=== PATIENT | male | born 1965 | race Hispanic/Latino ===

== ENCOUNTER 2020-03-25 14:26 | Inpatient (IN) | payer BC ==
[~2020-03-25] VITALS: Ht 177.8 cm; Wt 189.1 kg
[2020-03-25 15:10] LABS: BASOPHILS % 0.2 % (0.0-1.0); HEMATOCRIT 51.3 % (38.2-49.6); HEMOGLOBIN 16.5 g/dL (14.0-18.0); LYMPHOCYTES # (AUTO) 0.7 (1.0-3.2); LYMPHOCYTES % 12.9 % (18.0-39.1); MEAN CORPUSCULAR HGB CONC 32.2 g/dL (31-35); MEAN CORPUSCULAR VOLUME 90.2 fL (81-99); MONOCYTES # (AUTO) 0.4 (0.2-0.8); NEUTROPHILS # (AUTO) 4.2 (2.1-6.9); NEUTROPHILS % 78.7 % (38.7-80.0); PLATELET COUNT 156 x10e3/uL (140-360); RED BLOOD COUNT 5.69 x10e6/uL (4.3-5.7); RED CELL DISTRIBUTION WIDTH 13.6 % (11.7-14.4)
[2020-03-25] MEDS ORDERED: DEXAMETHASONE SOD PHOS 10 MG/1 ML VIAL IV ONE (15:15)
[2020-03-25 15:27] LABS: ALANINE AMINOTRANSFERASE 46 IU/L (0-55); ALBUMIN 3.6 g/dL (3.5-5.0); ALBUMIN/GLOBULIN RATIO 0.9 (0.8-2.0); ALKALINE PHOSPHATASE 73 IU/L (40-150); ANION GAP 14.3 mmol/L (8-16); BLOOD UREA NITROGEN 9 mg/dL (7-26); BUN/CREATININE RATIO 9 (6-25); CALCIUM 8.2 mg/dL (8.4-10.2); CARBON DIOXIDE 29 mmol/L (22-29); CHLORIDE 96 mmol/L (98-107); CREATININE, SERUM 0.99 mg/dL (0.72-1.25); EST GLOMERULAR FILTRATION RATE > 60 ML/MIN (60-); GLUCOSE 109 mg/dL (74-118); POTASSIUM 4.3 mmol/L (3.5-5.1); SODIUM 135 mmol/L (136-145)
[2020-03-25] MEDS ORDERED: CEFTRIAXONE SOD 1 GM/NS 50 ML 50 ML IV SCH (15:45)
[2020-03-25] MEDS: AZITHROMYCIN 500MG/NS 250 ML 250 ML IV SCH (16:15)
[2020-03-25] MEDS: ENOXAPARIN SOD INJ 40 MG/0.4 ML SYR SC SCH (16:19)
[2020-03-25] MEDS: ASCORBIC ACID 500 MG TAB PO SCH (16:21)
[2020-03-25] MEDS ORDERED: ENOXAPARIN INJ 80 MG/0.8 ML SYR SC SCH ×2 (17:00)
[2020-03-25] MEDS ORDERED: ASCORBIC ACID 500 MG TAB PO SCH (17:00)
[2020-03-25 17:46] VITALS: BP 146/86
[2020-03-25 17:50] VITALS: BP 146/86
[2020-03-25] MEDS ORDERED: REMDESIVIR 200MG/NS 100ML 200 MG IV ONE (18:00)
[2020-03-25] MEDS: CEFTRIAXONE SOD 2 GM/NS 100 ML 100 ML IV SCH (18:15)
[2020-03-25] MEDS ORDERED: SODIUM CHLORIDE 0.9% 50ML 50 ML ONE (18:27)
[2020-03-25] MEDS ORDERED: AZOR 10-40 MG1 EACH PO (18:41)
[2020-03-25 20:56] VITALS: BP 133/66
[2020-03-25 21:04] VITALS: BP 133/66
[2020-03-25] MEDS: ACETAMINOPHEN 325 MG TAB PO PRN (21:24)
[2020-03-25 23:54] VITALS: BP 119/65
[2020-03-26] VITALS (7 sets, daily range): BP systolic 125–146; BP diastolic 78–94
[2020-03-26] MEDS: ACETAMINOPHEN 325 MG TAB PO PRN (04:18)
[2020-03-26] MEDS: ONDANSETRON HCL INJ 2MG/ML 2ML 2 MG/ML VIAL IV PRN ×2 (05:20→09:18)
[2020-03-26] MEDS: MORPHINE SULFATE INJ 2 MG/ML SYR IV PRN ×2 (05:20→09:18)
[2020-03-26] MEDS ORDERED: AZITHROMYCIN 500MG/NS 250 ML 250 ML IV SCH ×2 (06:00→09:00)
[2020-03-26 06:57] LABS: HEMATOCRIT 49.8 % (38.2-49.6); LYMPHOCYTES # (AUTO) 0.5 (1.0-3.2); LYMPHOCYTES % 12.4 % (18.0-39.1); MEAN CORPUSCULAR HEMOGLOBIN 28.9 pg (28-32); MEAN CORPUSCULAR HGB CONC 32.1 g/dL (31-35); MEAN CORPUSCULAR VOLUME 89.9 fL (81-99); MONOCYTES # (AUTO) 0.4 (0.2-0.8); MONOCYTES % 8.5 % (4.4-11.3); NEUTROPHILS # (AUTO) 3.4 (2.1-6.9); NEUTROPHILS % 78.9 % (38.7-80.0); PLATELET COUNT 157 x10e3/uL (140-360); RED BLOOD COUNT 5.54 x10e6/uL (4.3-5.7); RED CELL DISTRIBUTION WIDTH 13.5 % (11.7-14.4)
[2020-03-26 07:17] LABS: ALANINE AMINOTRANSFERASE 44 IU/L (0-55); ALBUMIN 3.4 g/dL (3.5-5.0); ALBUMIN/GLOBULIN RATIO 0.9 (0.8-2.0); ALKALINE PHOSPHATASE 66 IU/L (40-150); ANION GAP 13.2 mmol/L (8-16); BLOOD UREA NITROGEN 12 mg/dL (7-26); BUN/CREATININE RATIO 15 (6-25); CARBON DIOXIDE 25 mmol/L (22-29); CHLORIDE 100 mmol/L (98-107); CREATININE, SERUM 0.79 mg/dL (0.72-1.25); EST GLOMERULAR FILTRATION RATE > 60 ML/MIN (60-); GLUCOSE 115 mg/dL (74-118); POTASSIUM 4.2 mmol/L (3.5-5.1); SODIUM 134 mmol/L (136-145)
[2020-03-26] MEDS: ASCORBIC ACID 500 MG TAB PO SCH ×2 (08:14→16:09)
[2020-03-26] MEDS ORDERED: SODIUM CHLORIDE 0.9% 250ML 250 ML ONE (08:15)
[2020-03-26] MEDS: LOSARTAN POTASSIUM 25 MG TAB PO SCH (08:16)
[2020-03-26] MEDS: DEXAMETHASONE SOD PHOS 10 MG/1 ML VIAL IV SCH (08:17)
[2020-03-26] MEDS: ENOXAPARIN SOD INJ 40 MG/0.4 ML SYR SC SCH ×2 (08:17→16:09)
[2020-03-26] MEDS ORDERED: CEFTRIAXONE SOD 2 GM/NS 100 ML 100 ML IV SCH (09:00)
[2020-03-26] MEDS ORDERED: ZINC SULFATE 220 MG CAP PO SCH ×2 (09:00)
[2020-03-26] MEDS: ZINC SULFATE 50 MG CAP PO SCH (10:06)
[2020-03-26] MEDS: REMDESIVIR 100MG/NS 100ML 100 MG IV SCH (13:35)
[2020-03-26] MEDS: AZITHROMYCIN 500MG/NS 250 ML 250 ML IV SCH (16:10)
[2020-03-26] MEDS: DOCUSATE SODIUM 100 MG CAP PO SCH ×2 (17:00→17:56)
[2020-03-26] MEDS: ALBUTEROL SULFATE HFA 8GM INHALATION AEROSOL INH PRN (17:20)
[2020-03-26] MEDS: CEFTRIAXONE SOD 2 GM/NS 100 ML 100 ML IV SCH (17:50)
[2020-03-27] VITALS (8 sets, daily range): BP systolic 114–142; BP diastolic 62–95
[2020-03-27 06:59] LABS: AMYLASE 40 U/L (25-125); LIPASE 21 U/L (8-78)
[2020-03-27] MEDS: DOCUSATE SODIUM 100 MG CAP PO SCH ×2 (09:42→18:17)
[2020-03-27] MEDS: ENOXAPARIN SOD INJ 40 MG/0.4 ML SYR SC SCH ×2 (09:42→18:17)
[2020-03-27] MEDS: ASCORBIC ACID 500 MG TAB PO SCH ×2 (09:42→18:17)
[2020-03-27] MEDS: DEXAMETHASONE SOD PHOS 10 MG/1 ML VIAL IV SCH (09:42)
[2020-03-27] MEDS: ZINC SULFATE 50 MG CAP PO SCH (09:42)
[2020-03-27] MEDS: LOSARTAN POTASSIUM 25 MG TAB PO SCH (09:42)
[2020-03-27 10:37] LABS: BASOPHILS % 0.2 % (0.0-1.0); HEMATOCRIT 49.9 % (38.2-49.6); HEMOGLOBIN 16.1 g/dL (14.0-18.0); LYMPHOCYTES # (AUTO) 0.9 (1.0-3.2); LYMPHOCYTES % 13.6 % (18.0-39.1); MEAN CORPUSCULAR HGB CONC 32.3 g/dL (31-35); MEAN CORPUSCULAR VOLUME 89.9 fL (81-99); MONOCYTES # (AUTO) 0.6 (0.2-0.8); NEUTROPHILS # (AUTO) 4.9 (2.1-6.9); PLATELET COUNT 182 x10e3/uL (140-360); RED BLOOD COUNT 5.55 x10e6/uL (4.3-5.7); RED CELL DISTRIBUTION WIDTH 13.9 % (11.7-14.4)
[2020-03-27 10:56] LABS: ALANINE AMINOTRANSFERASE 45 IU/L (0-55); ALBUMIN 3.4 g/dL (3.5-5.0); ALBUMIN/GLOBULIN RATIO 0.9 (0.8-2.0); ALKALINE PHOSPHATASE 61 IU/L (40-150); ANION GAP 15.2 mmol/L (8-16); BLOOD UREA NITROGEN 15 mg/dL (7-26); BUN/CREATININE RATIO 17 (6-25); CARBON DIOXIDE 23 mmol/L (22-29); CHLORIDE 99 mmol/L (98-107); CREATININE, SERUM 0.88 mg/dL (0.72-1.25); EST GLOMERULAR FILTRATION RATE > 60 ML/MIN (60-); GLUCOSE 102 mg/dL (74-118); POTASSIUM 4.2 mmol/L (3.5-5.1); SODIUM 133 mmol/L (136-145)
[2020-03-27] MEDS: REMDESIVIR 100MG/NS 100ML 100 MG IV SCH (13:22)
[2020-03-27] MEDS: AZITHROMYCIN 500MG/NS 250 ML 250 ML IV SCH (15:53)
[2020-03-27] MEDS: CEFTRIAXONE SOD 2 GM/NS 100 ML 100 ML IV SCH (19:30)
[2020-03-27] MEDS: ACETAMINOPHEN 325 MG TAB PO PRN (19:45)
[2020-03-28] VITALS (8 sets, daily range): BP systolic 115–159; BP diastolic 66–81
[2020-03-28] MEDS: ACETAMINOPHEN 325 MG TAB PO PRN (03:38)
[2020-03-28 06:12] LABS: BASOPHILS % 0.2 % (0.0-1.0); HEMATOCRIT 48.7 % (38.2-49.6); HEMOGLOBIN 15.5 g/dL (14.0-18.0); LYMPHOCYTES # (AUTO) 0.8 (1.0-3.2); LYMPHOCYTES % 12.8 % (18.0-39.1); MEAN CORPUSCULAR HEMOGLOBIN 28.4 pg (28-32); MEAN CORPUSCULAR HGB CONC 31.8 g/dL (31-35); MEAN CORPUSCULAR VOLUME 89.4 fL (81-99); MONOCYTES # (AUTO) 0.6 (0.2-0.8); MONOCYTES % 8.8 % (4.4-11.3); NEUTROPHILS # (AUTO) 5.1 (2.1-6.9); PLATELET COUNT 186 x10e3/uL (140-360); RED BLOOD COUNT 5.45 x10e6/uL (4.3-5.7); RED CELL DISTRIBUTION WIDTH 13.9 % (11.7-14.4)
[2020-03-28 06:44] LABS: ALANINE AMINOTRANSFERASE 51 IU/L (0-55); ALBUMIN 3.3 g/dL (3.5-5.0); ALBUMIN/GLOBULIN RATIO 0.9 (0.8-2.0); ALKALINE PHOSPHATASE 104 IU/L (40-150); ANION GAP 12.9 mmol/L (8-16); BLOOD UREA NITROGEN 14 mg/dL (7-26); BUN/CREATININE RATIO 19 (6-25); CALCIUM 8.2 mg/dL (8.4-10.2); CARBON DIOXIDE 28 mmol/L (22-29); CHLORIDE 97 mmol/L (98-107); CREATININE, SERUM 0.74 mg/dL (0.72-1.25); EST GLOMERULAR FILTRATION RATE > 60 ML/MIN (60-); GLUCOSE 110 mg/dL (74-118); POTASSIUM 3.9 mmol/L (3.5-5.1); SODIUM 134 mmol/L (136-145)
[2020-03-28] MEDS: DEXAMETHASONE SOD PHOS 10 MG/1 ML VIAL IV SCH (08:56)
[2020-03-28] MEDS: ASCORBIC ACID 500 MG TAB PO SCH ×2 (08:57→16:05)
[2020-03-28] MEDS: LOSARTAN POTASSIUM 25 MG TAB PO SCH (08:57)
[2020-03-28] MEDS: ENOXAPARIN SOD INJ 40 MG/0.4 ML SYR SC SCH ×2 (08:57→17:53)
[2020-03-28] MEDS: ZINC SULFATE 50 MG CAP PO SCH (08:57)
[2020-03-28] MEDS: DOCUSATE SODIUM 100 MG CAP PO SCH ×2 (09:00→16:05)
[2020-03-28] MEDS: ONDANSETRON HCL INJ 2MG/ML 2ML 2 MG/ML VIAL IV PRN (11:06)
[2020-03-28] MEDS: REMDESIVIR 100MG/NS 100ML 100 MG IV SCH (13:30)
[2020-03-28] MEDS: AZITHROMYCIN 500MG/NS 250 ML 250 ML IV SCH (15:24)
[2020-03-28] MEDS: ALBUTEROL SULFATE HFA 8GM INHALATION AEROSOL INH PRN (15:41)
[2020-03-28] MEDS: CEFTRIAXONE SOD 2 GM/NS 100 ML 100 ML IV SCH (16:05)
[2020-03-28] MEDS: MORPHINE SULFATE INJ 2 MG/ML SYR IV PRN (23:30)
[2020-03-29] VITALS (8 sets, daily range): BP systolic 109–146; BP diastolic 65–87
[2020-03-29 06:17] LABS: HEMATOCRIT 49.2 % (38.2-49.6); HEMOGLOBIN 15.4 g/dL (14.0-18.0); LYMPHOCYTES # (AUTO) 0.8 (1.0-3.2); LYMPHOCYTES % 9.6 % (18.0-39.1); MEAN CORPUSCULAR HEMOGLOBIN 28.5 pg (28-32); MEAN CORPUSCULAR HGB CONC 31.3 g/dL (31-35); MEAN CORPUSCULAR VOLUME 90.9 fL (81-99); MONOCYTES # (AUTO) 0.7 (0.2-0.8); MONOCYTES % 8.8 % (4.4-11.3); NEUTROPHILS # (AUTO) 6.5 (2.1-6.9); PLATELET COUNT 226 x10e3/uL (140-360); RED BLOOD COUNT 5.41 x10e6/uL (4.3-5.7); RED CELL DISTRIBUTION WIDTH 13.5 % (11.7-14.4)
[2020-03-29 07:08] LABS: ALANINE AMINOTRANSFERASE 52 IU/L (0-55); ALBUMIN 3.1 g/dL (3.5-5.0); ALBUMIN/GLOBULIN RATIO 0.8 (0.8-2.0); ALKALINE PHOSPHATASE 57 IU/L (40-150); ANION GAP 13.2 mmol/L (8-16); BLOOD UREA NITROGEN 13 mg/dL (7-26); BUN/CREATININE RATIO 18 (6-25); CALCIUM 8.1 mg/dL (8.4-10.2); CARBON DIOXIDE 29 mmol/L (22-29); CHLORIDE 97 mmol/L (98-107); CREATININE, SERUM 0.74 mg/dL (0.72-1.25); EST GLOMERULAR FILTRATION RATE > 60 ML/MIN (60-); GLUCOSE 124 mg/dL (74-118); POTASSIUM 4.2 mmol/L (3.5-5.1); SODIUM 135 mmol/L (136-145)
[2020-03-29] MEDS: LOSARTAN POTASSIUM 25 MG TAB PO SCH (08:48)
[2020-03-29] MEDS: ASCORBIC ACID 500 MG TAB PO SCH ×2 (08:49→19:29)
[2020-03-29] MEDS: ZINC SULFATE 50 MG CAP PO SCH (08:49)
[2020-03-29] MEDS: DOCUSATE SODIUM 100 MG CAP PO SCH ×2 (08:49→17:00)
[2020-03-29] MEDS: ENOXAPARIN SOD INJ 40 MG/0.4 ML SYR SC SCH ×2 (08:49→19:29)
[2020-03-29] MEDS: DEXAMETHASONE SOD PHOS 10 MG/1 ML VIAL IV SCH (08:50)
[2020-03-29] MEDS: MORPHINE SULFATE INJ 2 MG/ML SYR IV PRN (12:00)
[2020-03-29] MEDS: REMDESIVIR 100MG/NS 100ML 100 MG IV SCH (14:52)
[2020-03-29] MEDS: AZITHROMYCIN 500MG/NS 250 ML 250 ML IV SCH (19:18)
[2020-03-29] MEDS: CEFTRIAXONE SOD 2 GM/NS 100 ML 100 ML IV SCH (19:29)
[2020-03-30] VITALS (7 sets, daily range): BP systolic 114–142; BP diastolic 70–86
[2020-03-30] MEDS: DEXAMETHASONE SOD PHOS 10 MG/1 ML VIAL IV SCH (08:29)
[2020-03-30] MEDS: LOSARTAN POTASSIUM 25 MG TAB PO SCH (08:43)
[2020-03-30] MEDS: ASCORBIC ACID 500 MG TAB PO SCH ×2 (08:43→17:23)
[2020-03-30] MEDS: DOCUSATE SODIUM 100 MG CAP PO SCH ×2 (08:43→17:23)
[2020-03-30] MEDS: ENOXAPARIN SOD INJ 40 MG/0.4 ML SYR SC SCH ×2 (08:43→17:23)
[2020-03-30] MEDS: ZINC SULFATE 50 MG CAP PO SCH (08:43)
[2020-03-30 09:45] LABS: BASOPHILS % 0.2 % (0.0-1.0); HEMATOCRIT 47.6 % (38.2-49.6); HEMOGLOBIN 15.2 g/dL (14.0-18.0); LYMPHOCYTES # (AUTO) 0.9 (1.0-3.2); LYMPHOCYTES % 9.7 % (18.0-39.1); MEAN CORPUSCULAR HGB CONC 31.9 g/dL (31-35); MEAN CORPUSCULAR VOLUME 90.8 fL (81-99); MONOCYTES # (AUTO) 0.8 (0.2-0.8); MONOCYTES % 8.5 % (4.4-11.3); NEUTROPHILS # (AUTO) 7.3 (2.1-6.9); NEUTROPHILS % 81.2 % (38.7-80.0); PLATELET COUNT 256 x10e3/uL (140-360); RED BLOOD COUNT 5.24 x10e6/uL (4.3-5.7); RED CELL DISTRIBUTION WIDTH 13.5 % (11.7-14.4)
[2020-03-30 10:48] LABS: ALANINE AMINOTRANSFERASE 61 IU/L (0-55); ALBUMIN 3.1 g/dL (3.5-5.0); ALBUMIN/GLOBULIN RATIO 0.8 (0.8-2.0); ALKALINE PHOSPHATASE 58 IU/L (40-150); ANION GAP 12.4 mmol/L (8-16); BLOOD UREA NITROGEN 14 mg/dL (7-26); BUN/CREATININE RATIO 19 (6-25); CALCIUM 8.3 mg/dL (8.4-10.2); CARBON DIOXIDE 30 mmol/L (22-29); CHLORIDE 99 mmol/L (98-107); CREATININE, SERUM 0.74 mg/dL (0.72-1.25); EST GLOMERULAR FILTRATION RATE > 60 ML/MIN (60-); GLUCOSE 140 mg/dL (74-118); POTASSIUM 4.4 mmol/L (3.5-5.1); SODIUM 137 mmol/L (136-145)
[2020-03-30] MEDS: CEFTRIAXONE SOD 2 GM/NS 100 ML 100 ML IV SCH (17:23)
[2020-03-30] MEDS: AZITHROMYCIN 500MG/NS 250 ML 250 ML IV SCH (17:23)
[2020-03-30] MEDS: ALPRAZOLAM 0.25 MG TAB PO PRN (17:27)
[2020-03-30] MEDS: ALBUTEROL SULFATE HFA 8GM INHALATION AEROSOL INH PRN (21:37)
[2020-03-31] VITALS (8 sets, daily range): BP systolic 129–137; BP diastolic 59–80
[2020-03-31] MEDS: DOCUSATE SODIUM 100 MG CAP PO SCH ×2 (08:34→16:02)
[2020-03-31] MEDS: DEXAMETHASONE SOD PHOS 10 MG/1 ML VIAL IV SCH (08:34)
[2020-03-31] MEDS: ASCORBIC ACID 500 MG TAB PO SCH ×2 (08:35→16:02)
[2020-03-31] MEDS: ENOXAPARIN SOD INJ 40 MG/0.4 ML SYR SC SCH ×2 (08:35→16:02)
[2020-03-31] MEDS: LOSARTAN POTASSIUM 25 MG TAB PO SCH (08:35)
[2020-03-31] MEDS: ZINC SULFATE 50 MG CAP PO SCH (08:35)
[2020-03-31 09:17] LABS: BASOPHILS % 0.1 % (0.0-1.0); EOSINOPHILS % 0.1 % (0.0-6.0); HEMATOCRIT 49.5 % (38.2-49.6); HEMOGLOBIN 15.5 g/dL (14.0-18.0); LYMPHOCYTES % 14.9 % (18.0-39.1); MEAN CORPUSCULAR HEMOGLOBIN 28.8 pg (28-32); MEAN CORPUSCULAR HGB CONC 31.3 g/dL (31-35); MONOCYTES # (AUTO) 0.5 (0.2-0.8); MONOCYTES % 7.9 % (4.4-11.3); NEUTROPHILS # (AUTO) 5.2 (2.1-6.9); PLATELET COUNT 276 x10e3/uL (140-360); RED BLOOD COUNT 5.38 x10e6/uL (4.3-5.7); RED CELL DISTRIBUTION WIDTH 13.5 % (11.7-14.4)
[2020-03-31 09:42] LABS: ALANINE AMINOTRANSFERASE 76 IU/L (0-55); ALBUMIN 3.2 g/dL (3.5-5.0); ALBUMIN/GLOBULIN RATIO 0.9 (0.8-2.0); ALKALINE PHOSPHATASE 64 IU/L (40-150); ANION GAP 13.3 mmol/L (8-16); BLOOD UREA NITROGEN 16 mg/dL (7-26); BUN/CREATININE RATIO 20 (6-25); CALCIUM 8.6 mg/dL (8.4-10.2); CARBON DIOXIDE 31 mmol/L (22-29); CHLORIDE 98 mmol/L (98-107); EST GLOMERULAR FILTRATION RATE > 60 ML/MIN (60-); GLUCOSE 142 mg/dL (74-118); POTASSIUM 4.3 mmol/L (3.5-5.1); SODIUM 138 mmol/L (136-145)
[2020-03-31] MEDS: AZITHROMYCIN 500MG/NS 250 ML 250 ML IV SCH (16:00)
[2020-03-31] MEDS: CEFTRIAXONE SOD 2 GM/NS 100 ML 100 ML IV SCH (17:11)
[2020-03-31] MEDS: ALPRAZOLAM 0.25 MG TAB PO PRN (23:14)
[2020-04-01] VITALS (8 sets, daily range): BP systolic 114–140; BP diastolic 43–91
[2020-04-01 06:00] LABS: BASOPHILS % 0.1 % (0.0-1.0); EOSINOPHILS % 0.1 % (0.0-6.0); HEMATOCRIT 50.9 % (38.2-49.6); HEMOGLOBIN 16.2 g/dL (14.0-18.0); LYMPHOCYTES # (AUTO) 1.2 (1.0-3.2); LYMPHOCYTES % 15.2 % (18.0-39.1); MEAN CORPUSCULAR HEMOGLOBIN 28.9 pg (28-32); MEAN CORPUSCULAR HGB CONC 31.8 g/dL (31-35); MEAN CORPUSCULAR VOLUME 90.7 fL (81-99); MONOCYTES # (AUTO) 0.7 (0.2-0.8); MONOCYTES % 9.2 % (4.4-11.3); NEUTROPHILS # (AUTO) 5.8 (2.1-6.9); NEUTROPHILS % 74.5 % (38.7-80.0); PLATELET COUNT 320 x10e3/uL (140-360); RED BLOOD COUNT 5.61 x10e6/uL (4.3-5.7); RED CELL DISTRIBUTION WIDTH 13.5 % (11.7-14.4)
[2020-04-01 06:38] LABS: ALANINE AMINOTRANSFERASE 80 IU/L (0-55); ALBUMIN 3.2 g/dL (3.5-5.0); ALKALINE PHOSPHATASE 65 IU/L (40-150); ANION GAP 12.4 mmol/L (8-16); BLOOD UREA NITROGEN 14 mg/dL (7-26); BUN/CREATININE RATIO 19 (6-25); CALCIUM 8.4 mg/dL (8.4-10.2); CARBON DIOXIDE 31 mmol/L (22-29); CHLORIDE 99 mmol/L (98-107); CREATININE, SERUM 0.75 mg/dL (0.72-1.25); EST GLOMERULAR FILTRATION RATE > 60 ML/MIN (60-); GLUCOSE 105 mg/dL (74-118); POTASSIUM 4.4 mmol/L (3.5-5.1); SODIUM 138 mmol/L (136-145)
[2020-04-01] MEDS: ZINC SULFATE 50 MG CAP PO SCH (08:23)
[2020-04-01] MEDS: ENOXAPARIN SOD INJ 40 MG/0.4 ML SYR SC SCH (08:23)
[2020-04-01] MEDS: LOSARTAN POTASSIUM 25 MG TAB PO SCH (08:23)
[2020-04-01] MEDS: DOCUSATE SODIUM 100 MG CAP PO SCH ×3 (08:23→16:01)
[2020-04-01] MEDS: DEXAMETHASONE SOD PHOS 10 MG/1 ML VIAL IV SCH (08:23)
[2020-04-01] MEDS: ASCORBIC ACID 500 MG TAB PO SCH ×2 (08:23→16:01)
[2020-04-01] MEDS: CEFTRIAXONE SOD 2 GM/NS 100 ML 100 ML IV SCH (16:01)
[2020-04-01] MEDS: AZITHROMYCIN 500MG/NS 250 ML 250 ML IV SCH (17:05)
[2020-04-01] MEDS: RIVAROXABAN 20 MG TABLET PO SCH (18:13)
[2020-04-01] MEDS: METOPROLOL TARTRATE 50 MG TAB PO SCH (18:13)
[2020-04-02] VITALS (9 sets, daily range): BP systolic 85–154; BP diastolic 45–132
[2020-04-02] MEDS: DOCUSATE SODIUM 100 MG CAP PO SCH ×2 (09:00→16:36)
[2020-04-02] MEDS: METOPROLOL TARTRATE 50 MG TAB PO SCH ×2 (10:14→16:56)
[2020-04-02] MEDS: LOSARTAN POTASSIUM 25 MG TAB PO SCH (10:14)
[2020-04-02] MEDS: ASCORBIC ACID 500 MG TAB PO SCH ×2 (10:14→16:56)
[2020-04-02] MEDS: ZINC SULFATE 50 MG CAP PO SCH (10:15)
[2020-04-02] MEDS: AZITHROMYCIN 500MG/NS 250 ML 250 ML IV SCH (16:53)
[2020-04-02] MEDS: RIVAROXABAN 20 MG TABLET PO SCH (16:56)
[2020-04-02] MEDS: CEFTRIAXONE SOD 2 GM/NS 100 ML 100 ML IV SCH (18:14)
[2020-04-02] MEDS: ALPRAZOLAM 0.25 MG TAB PO PRN (20:39)
[2020-04-02] MEDS: ZOLPIDEM TARTRATE 5 MG TAB PO PRN (20:39)
[2020-04-03] VITALS (8 sets, daily range): BP systolic 96–113; BP diastolic 62–81
[2020-04-03] MEDS: DOCUSATE SODIUM 100 MG CAP PO SCH ×2 (08:25→16:29)
[2020-04-03] MEDS: METOPROLOL TARTRATE 50 MG TAB PO SCH ×2 (09:00→16:29)
[2020-04-03] MEDS: ZINC SULFATE 50 MG CAP PO SCH (09:00)
[2020-04-03] MEDS: ASCORBIC ACID 500 MG TAB PO SCH ×2 (09:00→16:29)
[2020-04-03] MEDS: LOSARTAN POTASSIUM 25 MG TAB PO SCH ×2 (09:00→16:30)
[2020-04-03] MEDS: AZITHROMYCIN 500MG/NS 250 ML 250 ML IV SCH (16:11)
[2020-04-03] MEDS: RIVAROXABAN 20 MG TABLET PO SCH (16:29)
[2020-04-03] MEDS: ACETAMINOPHEN 325 MG TAB PO PRN (16:29)
[2020-04-03] MEDS: CEFTRIAXONE SOD 2 GM/NS 100 ML 100 ML IV SCH (18:15)
[2020-04-03] MEDS: ZOLPIDEM TARTRATE 5 MG TAB PO PRN (20:23)
[2020-04-03] MEDS: ALPRAZOLAM 0.25 MG TAB PO PRN (20:24)
[2020-04-04] VITALS (8 sets, daily range): BP systolic 99–134; BP diastolic 61–99
[2020-04-04 06:13] LABS: BASOPHILS % 0.1 % (0.0-1.0); EOSINOPHILS # (AUTO) 0.1 (0.0-0.4); EOSINOPHILS % 1.4 % (0.0-6.0); HEMATOCRIT 51.3 % (38.2-49.6); HEMOGLOBIN 16.4 g/dL (14.0-18.0); LYMPHOCYTES # (AUTO) 1.1 (1.0-3.2); LYMPHOCYTES % 13.6 % (18.0-39.1); MEAN CORPUSCULAR HEMOGLOBIN 28.7 pg (28-32); MEAN CORPUSCULAR VOLUME 89.8 fL (81-99); MONOCYTES # (AUTO) 0.9 (0.2-0.8); MONOCYTES % 10.9 % (4.4-11.3); NEUTROPHILS # (AUTO) 5.8 (2.1-6.9); NEUTROPHILS % 73.2 % (38.7-80.0); PLATELET COUNT 303 x10e3/uL (140-360); RED BLOOD COUNT 5.71 x10e6/uL (4.3-5.7); RED CELL DISTRIBUTION WIDTH 13.8 % (11.7-14.4)
[2020-04-04 06:46] LABS: ALANINE AMINOTRANSFERASE 81 IU/L (0-55); ALBUMIN 2.9 g/dL (3.5-5.0); ALBUMIN/GLOBULIN RATIO 0.9 (0.8-2.0); ALKALINE PHOSPHATASE 58 IU/L (40-150); ANION GAP 12.6 mmol/L (8-16); BLOOD UREA NITROGEN 16 mg/dL (7-26); BUN/CREATININE RATIO 21 (6-25); CALCIUM 7.9 mg/dL (8.4-10.2); CARBON DIOXIDE 26 mmol/L (22-29); CHLORIDE 104 mmol/L (98-107); CREATININE, SERUM 0.78 mg/dL (0.72-1.25); EST GLOMERULAR FILTRATION RATE > 60 ML/MIN (60-); GLUCOSE 114 mg/dL (74-118); MAGNESIUM 2.3 MG/DL (1.3-2.1); POTASSIUM 4.6 mmol/L (3.5-5.1); SODIUM 138 mmol/L (136-145)
[2020-04-04] MEDS: ZINC SULFATE 50 MG CAP PO SCH (09:13)
[2020-04-04] MEDS: ASCORBIC ACID 500 MG TAB PO SCH ×2 (09:13→17:59)
[2020-04-04] MEDS: LOSARTAN POTASSIUM 25 MG TAB PO SCH (09:13)
[2020-04-04] MEDS: DOCUSATE SODIUM 100 MG CAP PO SCH ×2 (09:13→17:59)
[2020-04-04] MEDS: METOPROLOL TARTRATE 50 MG TAB PO SCH ×2 (09:13→17:59)
[2020-04-04] MEDS: RIVAROXABAN 20 MG TABLET PO SCH (17:59)
[2020-04-05] VITALS (10 sets, daily range): BP systolic 91–152; BP diastolic 53–83
[2020-04-05] MEDS: ACETAMINOPHEN 325 MG TAB PO PRN (02:48)
[2020-04-05] MEDS: DOCUSATE SODIUM 100 MG CAP PO SCH ×2 (08:24→16:42)
[2020-04-05] MEDS: ZINC SULFATE 50 MG CAP PO SCH (08:25)
[2020-04-05] MEDS: METOPROLOL TARTRATE 50 MG TAB PO SCH ×2 (08:25→16:44)
[2020-04-05] MEDS: LOSARTAN POTASSIUM 25 MG TAB PO SCH (08:25)
[2020-04-05] MEDS: ASCORBIC ACID 500 MG TAB PO SCH ×2 (08:25→16:42)
[2020-04-05] MEDS: RIVAROXABAN 20 MG TABLET PO SCH (16:42)
[2020-04-05] MEDS: ZOLPIDEM TARTRATE 5 MG TAB PO PRN (21:30)
[2020-04-06] VITALS (7 sets, daily range): BP systolic 105–121; BP diastolic 55–96
[2020-04-06] MEDS: ASCORBIC ACID 500 MG TAB PO SCH ×2 (07:53→16:43)
[2020-04-06] MEDS: DOCUSATE SODIUM 100 MG CAP PO SCH ×2 (07:53→16:42)
[2020-04-06] MEDS: ZINC SULFATE 50 MG CAP PO SCH (07:54)
[2020-04-06] MEDS: LOSARTAN POTASSIUM 25 MG TAB PO SCH (09:23)
[2020-04-06] MEDS: METOPROLOL TARTRATE 50 MG TAB PO SCH ×2 (09:23→16:43)
[2020-04-06] MEDS: RIVAROXABAN 20 MG TABLET PO SCH (16:43)
[2020-04-06] MEDS ORDERED: ZOLPIDEM TARTRATE 5 MG TAB PO PRN (22:45)
[2020-04-07] VITALS (7 sets, daily range): BP systolic 99–121; BP diastolic 54–92
[2020-04-07] MEDS: ZINC SULFATE 50 MG CAP PO SCH (08:36)
[2020-04-07] MEDS: METOPROLOL TARTRATE 50 MG TAB PO SCH ×2 (08:36→16:57)
[2020-04-07] MEDS: LOSARTAN POTASSIUM 25 MG TAB PO SCH (08:36)
[2020-04-07] MEDS: ASCORBIC ACID 500 MG TAB PO SCH ×2 (08:36→16:58)
[2020-04-07] MEDS: DOCUSATE SODIUM 100 MG CAP PO SCH ×2 (08:36→16:57)
[2020-04-07] MEDS: RIVAROXABAN 20 MG TABLET PO SCH (16:58)
[2020-04-08] VITALS (8 sets, daily range): BP systolic 87–112; BP diastolic 54–75
[2020-04-08 05:34] LABS: BASOPHILS % 0.3 % (0.0-1.0); EOSINOPHILS % 0.6 % (0.0-6.0); HEMATOCRIT 49.7 % (38.2-49.6); HEMOGLOBIN 16.2 g/dL (14.0-18.0); LYMPHOCYTES # (AUTO) 1.4 (1.0-3.2); LYMPHOCYTES % 22.6 % (18.0-39.1); MEAN CORPUSCULAR HEMOGLOBIN 29.7 pg (28-32); MEAN CORPUSCULAR HGB CONC 32.6 g/dL (31-35); MEAN CORPUSCULAR VOLUME 91.2 fL (81-99); MONOCYTES # (AUTO) 0.7 (0.2-0.8); MONOCYTES % 11.4 % (4.4-11.3); NEUTROPHILS # (AUTO) 4.1 (2.1-6.9); NEUTROPHILS % 64.6 % (38.7-80.0); PLATELET COUNT 250 x10e3/uL (140-360); RED BLOOD COUNT 5.45 x10e6/uL (4.3-5.7); RED CELL DISTRIBUTION WIDTH 13.8 % (11.7-14.4)
[2020-04-08 05:46] LABS: ALANINE AMINOTRANSFERASE 55 IU/L (0-55); ALBUMIN 2.9 g/dL (3.5-5.0); ALBUMIN/GLOBULIN RATIO 0.9 (0.8-2.0); ALKALINE PHOSPHATASE 68 IU/L (40-150); ANION GAP 15.7 mmol/L (8-16); BLOOD UREA NITROGEN 13 mg/dL (7-26); BUN/CREATININE RATIO 16 (6-25); CARBON DIOXIDE 25 mmol/L (22-29); CHLORIDE 103 mmol/L (98-107); EST GLOMERULAR FILTRATION RATE > 60 ML/MIN (60-); GLUCOSE 103 mg/dL (74-118); MAGNESIUM 2.2 MG/DL (1.3-2.1); POTASSIUM 4.7 mmol/L (3.5-5.1); SODIUM 139 mmol/L (136-145)
[2020-04-08] MEDS: DOCUSATE SODIUM 100 MG CAP PO SCH (08:24)
[2020-04-08] MEDS: LOSARTAN POTASSIUM 25 MG TAB PO SCH (08:34)
[2020-04-08] MEDS: ZINC SULFATE 50 MG CAP PO SCH (08:35)
[2020-04-08] MEDS: METOPROLOL TARTRATE 50 MG TAB PO SCH (08:35)
[2020-04-08] MEDS: ASCORBIC ACID 500 MG TAB PO SCH (08:35)
[2020-04-08] MEDS ORDERED: METOPROLOL TART50 MG PO (16:20)
[2020-04-08] MEDS ORDERED: XARELTO20 MG PO (16:21)
== END 2020-04-08 17:30 | disposition home or self-care (01) | DRG 177 ==
LOC: ER 14:34 → ERHOLD 16:06 → MED/SURG3 17:15 → IMCU 04-05 14:45
PROVIDERS: ADMIT Internal Medicine; ATTEND Internal Medicine
PROC: XW033E5 Introduction of Remdesivir Anti-infective into Peripheral Vein, Percutaneous Approach, New Technology Group 5 (ICD-10-PCS; 2020-03-25)
PROC: 8E0ZXY6 Isolation (ICD-10-PCS; 2020-03-25)
PROC: 02HV33Z Insertion of Infusion Device into Superior Vena Cava, Percutaneous Approach (ICD-10-PCS; principal; 2020-03-31)
DX: U07.1 COVID-19 (principal); J12.82 Pneumonia due to coronavirus disease 2019; J96.01 Acute respiratory failure with hypoxia; Z68.43 Body mass index [BMI] 50.0-59.9, adult; E87.1 Hypo-osmolality and hyponatremia; G93.40 Encephalopathy, unspecified; I10 Essential (primary) hypertension; E66.01 Morbid (severe) obesity due to excess calories; I48.91 Unspecified atrial fibrillation; Z79.01 Long term (current) use of anticoagulants; G47.33 Obstructive sleep apnea (adult) (pediatric)
CPT/HCPCS: 36415; 36569; 71045; 74018; 74176; 80053; 82150; 83690; 83735; 85025; 93005; 93306; 94660; 94664; 99251; 99284; J0456; J0696; J1100; J1650; J2270; J2405; J7050; U0002

== ENCOUNTER 2022-06-24 20:31 | Emergency (ER) | payer BC ==
[~2022-06-24] VITALS: Ht 177.8 cm; Wt 189.1 kg
[~2022-06-24 20:31] MED LIST: AZOR 10-40 MG1 EACH PO; METOPROLOL TART50 MG PO; XARELTO20 MG PO
== END 2022-06-24 22:17 | disposition home or self-care (01) ==
LOC: ER 20:54
DX: S80.11XA Contusion of right lower leg, initial encounter (principal); W21.07XA Struck by softball, initial encounter; Y92.89 Other specified places as the place of occurrence of the external cause; I10 Essential (primary) hypertension; E78.5 Hyperlipidemia, unspecified; E66.9 Obesity, unspecified
CPT/HCPCS: 99282